=== PATIENT | male | born 1990 ===

== ENCOUNTER 2024-12-04 20:26 | Emergency (ER) | payer SELFPAY ==
[2024-12-04 20:32] VITALS: BP 132/88; PULSE 102; O2SAT 95
[2024-12-04 20:34] VITALS: BP 104/66; PULSE 89; RESP 18; TEMP 36.1; O2SAT 97
[2024-12-04 20:42] VITALS: BP 104/66; PULSE 92; RESP 18; O2SAT 94; BMI 22.1
--- NOTE | 2024-12-04 20:46 | PC.NURSE ---
Pt reporting he wants to leave. Discussed with pt he should be seen by provider and asked him to allow us to get vitals and ensure he is okay. Pt agreed, sleepy but easily arousable, VSS.
--- NOTE | 2024-12-04 21:18 | ED.GENADULT ---
HPI - General Adult General Chief complaint: ETOH/Substance Use Stated complaint: FOUND ON SIDE OF ROAD, [place] THIS AM PER EMS Time Seen by Provider: 12/04/24 21:18 Source: patient and EMS Mode of arrival: EMS Limitations: no limitations History of Present Illness ED Provider: Dr. Tomeka Jackson HPI narrative: Patient comes to the emergency room via ambulance. Patient was found sleeping on a bench. PD woke him up, he did not need Narcan. Patient arrived to emergency room alert and oriented x3, states that he has not been able to sleep in the days. Admits to using heroin and crack earlier today. Denies SI or HI. Related Data Allergies Allergy/AdvReac Type Severity Reaction Status Date / Time No Known Allergies Allergy Verified 12/04/24 20:43 Review of Systems Review of Systems: Constitutional : No Weight loss, No Fever, No Chills, No Night Sweats, No Fatigue, No Malaise ENT/Mouth : No Hearing loss, No Ear Pain, No Nasal Congestion, No Sinus Pain, No Hoarseness, No sore throat, No Rhinorrhea, No Swallowing Difficulty Eyes: No Eye Pain, No Swelling, No Redness, No Foreign Body, No Discharge, No Vision Changes Cardiovascular : No Chest Pain, No SOB, No Dyspnea on Exertion, No Orthopnea, No Edema, No Palpitations Respiratory : No Cough, No Sputum, No Wheezing, No Smoke Exposure, No Dyspnea Gastrointestinal : No Nausea, No Vomiting, No Diarrhea, No Constipation, No abdominal Pain, No Hematochezia, No Melena Genitourinary : no irregular bleeding, No Dysuria, No Urinary Frequency, No Hematuria, No Urinary Incontinence, No Urgency, No Flank Pain, No Urinary Flow Changes, No Hesitancy Musculoskeletal : No joint pain, No Myalgias, No Joint Swelling Skin : No Skin Lesions, No rash Neuro : No Weakness, No Numbness, No Paresthesias, No Loss of Consciousness, No Dizziness, No Headache Psych : No Anxiety/Panic, No Depression, No SI/HI/AH/VH, admits to polysubstance abuse Heme/Lymph: No Bruising, No Bleeding,No Lymphadenopathy Endocrine : No Polyuria, No Polydipsia, No Temperature Intolerance [facility] Past Medical History Medical History (Updated 12/05/24 @ 01:59 by Tomeka Jackson MD) Polysubstance abuse Social History Social History Alcohol intake: never Smoked in Last 30 Days: Yes Use of substances other than those prescribed or required for medical reasons: Yes Substance Use Type: Crack/Cocaine and Heroin Substance Use Frequency: Chronic Longstanding Last Used Substance: Hours (ago) Any prior treatment program specific to substance use: Yes Physical Exam ED Vital Signs: Vital Signs - 24 hr 12/04/24 20:34 12/04/24 20:42 12/04/24 22:50 Temperature 97.0 F Pulse Rate 89 92 Respiratory Rate 18 18 Blood Pressure 104/66 104/66 Pulse Oximetry 97 94 96 Oxygen Delivery Method Room Air Room Air BMI result Body Mass Index 22.1 Const Other: Appearance: Alert. Oriented X3. No acute distress. A bit somnolent, but awake, able to hold a coherent conversation Eyes: Pupils equal, round and reactive to light. ENT: Pharynx normal. Neck: Normal inspection. Neck supple. No lymph nodes noted. No crepitus CVS: Normal heart rate and rhythm. Pulses normal. Normal S1 and S2 Respiratory: No respiratory distress. Breath sounds normal. No Wheezing. No rales Abdomen: Soft and nontender. No rigidity. No distention. Skin: Skin warm and dry. Normal skin color. Normal skin turgor. Extremities: No lower extremity edema. No Lacerations. No Rash Neuro: Oriented X 3. No motor deficit. No sensory deficit. Moving all extremities. No slurred speech. CN 2 through 12 grossly intact Psych: calm, cooperative, normal affect Medical Decision Making Medical Decision Making MDM Narrative: Patient has been alert, oriented x3, somnolent. Patient's vitals stable, patient then continuous pulse oximetry, saturating 96-97%, no oxygen desaturations. Patient is not SI no HI. Section 12 is not indicated Patient stated earlier today that he has no interest in detox. Plan: Metabolize to freedom, discharged when patient is completely awake, alert oriented x3 Differential Diagnosis Differential Diagnoses: The differential diagnosis associated with the presentation includes (Alcohol intoxication, polysubstance abuse) Admission/Observation Consideration of admission/observation: Escalation of care including admission/observation considered (Patient is under physician observation waiting to become fully awake and to be discharged) Critical Care Time Critical Care Time Critical Care Time: Yes Total Critical Care Time: 45 Attestation: I have personally provided critical care time. Time includes review of lab data, radiology results, discussion with consultants, and monitoring for potential decompensation. Intervention performed as documented. Discharge Plan Discharge Clinical Impression: Polysubstance abuse Instructions: Polysubstance Use Disorder (ED) Additional Instructions: Opiate use disorder You were seen in our Emergency Department today for treatment of opiate use disorder. You may have been dosed with medication for opiate use disorder (MOUD) in the form of suboxone or methadone. You may experience feeling some withdrawal symptoms and this is normal. The? dose in the Emergency Department is a starting dose and meant to be titrated up once you follow up with a clinic. Please do not feel discouraged, it is a process. The nurse has reviewed with you where to follow up and what information to bring with you, to continue treatment. You also may have been given naloxone (narcan) to take home with you. This medication is used to potentially treat opiate overdose. If you decide you want to stop or cut down on how much you?re using, you can call or walk into our outpatient Addiction Treatment office: [facility] (M-F 9am-5p) [address] [place] [address], [address] [phone] You may have been provided with safer injection?items, please take time to take care of YOU and your health. Use new supplies whenever possible to lessen the chances of infections and other illnesses.? ?If you need more supplies, please go [facility],? [address] [place] [address] OR you can call or text to coordinate delivery of safer supplies. You were also provided a list of several treatment providers in the area.? If you experience any worsening symptoms you cannot control please return to the ED or call 911. Please follow up at your next appointment. Things to look out for are fevers, chest pain, shortness of breath, severe pain, dizziness, fainting or any other concerns.
[2024-12-04 22:46] VITALS: PULSE 89
[2024-12-04 22:50] VITALS: O2SAT 96
[2024-12-05 04:49] VITALS: BP 117/77; PULSE 88; RESP 14; TEMP 36.5; O2SAT 99
[2024-12-05 05:00] VITALS: BP 117/77; PULSE 88; RESP 14; TEMP 36.5; O2SAT 99
== END 2024-12-05 05:00 | disposition home or self-care (01) ==
LOC: HO.ED 12-05 04:51
PROVIDERS: Emergency Provider Emergency Medicine
DX: F11.10 Opioid abuse, uncomplicated (principal); F14.10 Cocaine abuse, uncomplicated; Z71.51 Drug abuse counseling and surveillance of drug abuser
CPT/HCPCS: 99284